=== PATIENT | female | born 1950 | race Two or more races ===

== ENCOUNTER 2017-09-05 10:20 | Emergency (ER) | payer OTHER ==
[~2017-09-05] VITALS: Ht 154.9 cm; Wt 79.4 kg
[2017-09-05] MEDS ORDERED: ACETAMINOPHEN 325 MG TAB PO ONE ×2 (10:29→10:30)
[2017-09-05 10:32] VITALS: BP 149/90
== END 2017-09-05 11:56 | disposition home or self-care (01) ==
LOC: ER 10:20
DX: J06.9 Acute upper respiratory infection, unspecified (principal)
CPT/HCPCS: 87804

== ENCOUNTER 2019-01-21 18:40 | Emergency (ER) | payer OTHER, MEDICAID ==
[~2019-01-21] VITALS: Ht 154.9 cm; Wt 81.6 kg
[2019-01-21] MEDS ORDERED: AMMONIA 0.33 ML INHALANT IN ONE (18:45)
[2019-01-21] MEDS ORDERED: SODIUM CHLORIDE 0.9% 1,000 ML IV ONE (19:45)
[2019-01-21] MEDS ORDERED: LORazepam 2MG/ML-1ML VIAL IV ONE (19:45)
[2019-01-21 19:49] LABS: Basophils # (auto) 0.1 uL; Basophils % (auto) 2.4 % (0.0-2.0); Eosinophils # (auto) 0.1 uL; Eosinophils % (auto) 1.7 % (0.0-7.0); Hematocrit 40.5 % (36.0-46.0); Hemoglobin 13.1 g/dL (12.2-16.2); Lymphocytes # (auto) 1.3 uL; Lymphocytes % (auto) 21.8 % (10.0-50.0); Mean Corpuscular Hemoglobin 26.9 pg (28.0-32.0); Mean Corpuscular Hgb Conc. 32.4 g/dL (32.0-36.0); Mean Corpuscular Volume 83.1 fL (80.0-100.0); Monocytes # (auto) 0.3 uL; Monocytes % (auto) 5.3 % (0.0-12.0); Neutrophils # (auto) 4.1 uL; Neutrophils % (auto) 68.8 % (37.0-80.0); Nucleated Red Blood Cells % 0.2 %; Platelet Count (auto) 243 10^3/uL (140-450); Red Blood Cells 4.87 10^6/uL (4.0-5.20); Red Cell Distribution Width 14.2 % (11.8-14.3); White Blood Cell 5.9 10^3/uL (4.4-10.8)
[2019-01-21 20:10] LABS: Salicylate < 1.7 mg/dL (2.8-20.0)
[2019-01-21 20:14] LABS: Acetaminophen < 2.0 ug/mL (10-30)
[2019-01-21 20:20] LABS: Alanine Aminotransferase 28 U/L (13-56); Albumin 3.7 g/dL (3.4-5.0); Anion Gap 12 (5-15); Blood Urea Nitrogen 19 mg/dL (7-18); Calcium 9.5 mg/dL (8.5-10.1); Carbon Dioxide 24 mmol/L (21-32); Chloride 108 mmol/L (98-107); Glucose 118 mg/dL (74-106); Magnesium 2.4 mg/dL (1.6-2.6); Potassium 3.4 mmol/L (3.5-5.1); Sodium 144 mmol/L (136-145)
[2019-01-21 20:23] LABS: Alkaline Phosphatase 68 U/L (45-117); Aspartate Aminotransferase 19 U/L (15-37); BUN/Creatinine Ratio 19.4; Bilirubin, Total 0.1 mg/dL (0.2-1.0); GFR African American 73 mL/min; GFR Non-African American 60 mL/min; Total Protein 7.7 g/dL (6.4-8.2)
[2019-01-21 22:23] VITALS: BP 100/55
== END 2019-01-21 23:13 | disposition home or self-care (01) ==
LOC: ER 18:40
DX: F41.9 Anxiety disorder, unspecified (principal); F10.229 Alcohol dependence with intoxication, unspecified
CPT/HCPCS: 36415; 80053; 80320; 80329; 83735; 85025; 96374; 99283; J2060; J7030

== ENCOUNTER 2024-12-26 12:39 | Emergency (ER) | payer OTHER ==
[~2024-12-26] VITALS: Ht 152.4 cm; Wt 83.9 kg
--- NOTE | 2024-12-26 13:18 | ED.PDOC ---
GI ASSESSMENT HPI Comments 74 y.o female with PMHx of DM, HTN and cardiomegaly, presents to the ED for a chief complaint of right upper quadrant pain associated with nausea, vomiting and diarrhea that started yesterday. Patient reports pain is constant, radiating to her back and worsens on palpation. Patient mentions she also presents with new onset chest pressure with right arm numbness today . Patient reports no vomiting episodes today. Patient denies any dysuria, SOB, fever, or chills. Patient is not on any DM medication, states she is managing with diet and natural remedies approved by PCP. Patient is compliant with HTN medication. She denies any alcohol, tobacco or substance use. Chief Complaint: Abdominal Pain Time Seen by MD: 12:52 Primary Care Provider: ARTURO Fisher Notes: Nurses Notes, Medications, Allergies Allergies: Coded Allergies: NO KNOWN ALLERGIES (Unverified , 09/05/17) Information Source: Patient Mode of Arrival: Ambulatory Timing: Days (1) Duration: Since onset Quality: Sharp Vomitus: Hard Stool: Loose Severity: Moderate Recent: None Recent Hx of: None Pain Location: RUQ Modifying Factors: Nothing Associated sign and symptoms: Nausea, Vomiting, Diarrhea, Abdominal Pain Past Medical History PAST MEDICAL HISTORY: Anxiety, DM, HTN Past Medical History (Other): enlarged heart Surgical History: Appendectomy, Surgical History (Other): carpal tunnel 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 Family History Family History: Unknown Social History Smoker: Non-Smoker Alcohol: Denies ETOH Use Drugs: Denies Drug Use Lives In: Home Constitutional: denies: chills, diaphoresis, fatigue, fever, malaise, sweats, weakness, others EENTM: denies: blurred vision, double vision, ear bleeding, ear discharge, ear drainage, ear pain, ear ringing, eye pain, eye redness, hearing loss, mouth pain, mouth swelling, nasal discharge, nose bleeding, nose congestion, nose pain, photophobia, tearing, throat pain, throat swelling, voice changes, others Respiratory: denies: cough, hemoptysis, orthopnea, SOB at rest, shortness of breath, SOB with excertion, stridor, wheezing, others Cardiovascular: reports: chest pain; denies: dizzy spells, diaphoresis, Dyspnea on exertion, edema, irregular heart beat, left arm pain, lightheadedness, palpitations, PND, syncope, others Gastrointestinal: reports: abdominal pain, diarrhea, nausea, vomiting; denies: abdomen distended, blood streaked bowels, constipated, dysphagia, difficulty swallowing, hematemesis, melena, poor appetite, poor fluid intake, rectal bleeding, rectal pain, others Genitourinary: denies: abnormal vagina bleeding, burning, dyspareunia, dysuria, flank pain, frequency, hematuria, incontinence, pain, , vagina discharge, urgency, others Neurological: reports: numbness (right arm ); denies: dizziness, fainting, headache, left sided numbness, left sided weakness, paresthesia, pre-existing deficit, right sided numbness, right sided weakness, seizure, speech problems, tingling, tremors, weakness, others Musculoskeletal: reports: back pain, others (right arm pain ); denies: gout, joint pain, joint swelling, muscle pain, muscle stiffness, neck pain Integumetry: denies: bruises, change in color, change in hair/nails, dryness, laceration, lesions, lumps, rash, wounds, others Allergic/Immunocompromised: denies: Difficulty Healing, Frequent Infections, Hives, Itching, others Hematologic/Lymphatic: denies: anemia, blood clots, easy bleeding, easy bruising, swollen glands, others Endocrine: denies: excessive hunger, excessive sweating, excessive thirst, excessive urination, flushing, intolerance to cold, intolerance to heat, unexplained weight gain, unexplained weight loss, others Psychiatric: denies: anxiety, bipolar disorder, depression, hopeless, panic disorder, schizophrenia, sleepless, suicidal, others All Other Systems: Reviewed and Negative Physical Exam General Appearance: No Apparent Distress, Obese HEENT: Other (Pupils and face symmetric. Moist mucous membranes.) Neck: Full Range of Motion, Normal Inspection Respiratory: Lungs Clear, No Accessory Muscle Use, No Respiratory Distress, Normal Breath Sounds Cardiovascular: No Edema, No JVD, Regular Rate/Rhythm Breast Exam: Deferred Gastrointestinal: RUQ, Soft, Tenderness Genitalia: Deferred Pelvic: Deferred Rectal: Deferred Extremities: Normal inspection, Normal range of motion, Non-tender, No pedal edema Neurologic: Alert (Oriented x4), Normal Affect, Normal Mood, Other (Ambulatory) Cerebellar Function: NOT DONE Reflexes: NOT DONE Skin: Dry, Normal Color, Warm Lymphatic: NOT DONE Was a procedure done? Was a procedure done?: No GI differential Dx Differential Diagnosis: Appendicitis, Angina/LA, Cholangitis, Cholecystitis, Diverticular disease, Gastritis/PUD, Gastroenteritis, Inflammatory BD, Ischemic Bowel, Pancreatitis, Porphyria, UTI, Dehydration, Diabetes/ DKA, Electrolyte Imbalance, Food Poisoning, Bacterial, Viral, Hypovolemia, Renal Failure, Kidney Stone X-Ray, Labs, Meds, VS Vital Signs Date Time Temp Pulse Resp B/P (MAP) Pulse Ox O2 Delivery O2 Flow Rate FiO2 12/26/24 18:08 76 11 95/48 (64) 97 12/26/24 15:39 75 13 96 Room Air* 0 21 12/26/24 15:25 77 13 107/55 12/26/24 15:00 97.8 77 16 107/55 (72) 93 97.8 12/26/24 13:54 78 13 119/58 12/26/24 13:30 81 16 104/46 (65) 95 12/26/24 13:02 86 12/26/24 12:53 98.2 86 16 108/72 (84) 100 98.2 Lab Test 12/26/24 15:28 12/26/24 13:17 Range/Units Lactic Acid Level 1.5 2.3 *H 0.4-2.0 mmol/L White Blood Count 8.3 4.4-10.8 10^3/uL Red Blood Count 5.14 4.0-5.20 10^6/uL Hemoglobin 13.5 12.2-16.2 g/dL Hematocrit 41.3 36.0-46.0 % Mean Corpuscular Volume 80.3 80.0-100.0 fL Mean Corpuscular Hemoglobin 26.3 L 28.0-32.0 pg Mean Corpuscular Hemoglobin Concent 32.7 32.0-36.0 g/dL Red Cell Distribution Width 15.0 H 11.8-14.3 % Platelet Count 239 140-450 10^3/uL Mean Platelet Volume 9.5 6.9-10.8 fL Neutrophils (%) (Auto) 84.5 H 37.0-80.0 % Lymphocytes (%) (Auto) 6.8 L 10.0-50.0 % Monocytes (%) (Auto) 8.3 0.0-12.0 % Eosinophils (%) (Auto) 0.2 0.0-7.0 % Basophils (%) (Auto) 0.2 0.0-2.0 % Neutrophils # (Auto) 7.0 1.6-8.6 10 ^3/uL Lymphocytes # (Auto) 0.6 0.4-5.4 10 ^3/uL Monocytes # (Auto) 0.7 0-1.3 10 ^3/uL Eosinophils # (Auto) 0 0-0.8 10 ^3/uL Basophils # (Auto) 0 0-0.2 10 ^3/uL Nucleated Red Blood Cells 0.2 % Sodium Level 139 136-145 mmol/L Potassium Level 3.4 L 3.5-5.1 mmol/L Chloride Level 104 98-107 mmol/L Carbon Dioxide Level 20 20-31 mmol/L Anion Gap 15 5-15 Blood Urea Nitrogen 32 H 9-23 mg/dL Creatinine 2.24 H 0.550-1.02 mg/dL Glomerular Filtration Rate Calc 23 >90 mL/min BUN/Creatinine Ratio 14.3 10.0-20.0 Serum Glucose 144 H 74-106 mg/dL Calcium Level 10.9 H 8.7-10.4 mg/dL Total Bilirubin 0.4 0.2-1.0 mg/dL Aspartate Amino Transferase (AST) 20 13-40 U/L Alanine Aminotransferase (ALT) 24 7-40 U/L Alkaline Phosphatase 75 46-116 U/L Troponin I High Sensitivity 5 </=34 ng/L Total Protein 8.9 H 5.7-8.2 g/dL Albumin 5.2 H 3.2-4.8 g/dL Lipase 47 12-53 U/L Current Medications Medications (Trade) Dose Ordered Sig/Gonzalo Route Start Time Stop Time Status Last Admin Sodium Chloride 1,350 ml @ 1,350 mls/hr ONCE ONCE IV 12/26/24 13:15 12/26/24 14:14 DC 12/26/24 13:29 Ondansetron HCl (Zofran) 4 mg ONCE ONCE IV 12/26/24 13:15 12/26/24 13:16 DC 12/26/24 13:55 Morphine Sulfate 4 mg ONCE ONCE IV 12/26/24 13:15 12/26/24 13:16 DC 12/26/24 13:54 Ceftriaxone Sodium 50 ml @ 100 mls/hr ONCE ONCE IV 12/26/24 17:00 12/26/24 17:29 DC 12/26/24 17:26 Metronidazole 100 ml @ 100 mls/hr ONCE ONCE IV 12/26/24 17:00 12/26/24 17:59 DC 12/26/24 17:59 Potassium Bicarbonate (Klor-Con/Ef) 50 meq ONCE ONCE PO 12/26/24 17:00 12/26/24 17:01 DC 12/26/24 17:[address] AB PEL WO CON-NO ORAL OR IV INDICATION: ruq pain EXAM DATE: 12/26/2024 01:38 PM COMPARISON: None RADIATION DOSE: CTDIvol: 25 mGy, DLP: 1288 mGy*cm PROCEDURE: Helical CT images were obtained of the abdomen and pelvis without IV contrast Sagittal and coronal reconstructions are provided. ORAL CONTRAST: None. ADDITIONAL IMAGES / REFORMATS: None All CT scans at this medical facility are performed using dose modulation techniques as appropriate to a performed exam including the following: Automated exposure control was utilized; adjustment of the MA and/or KV according to patient size; and use of iterative reconstruction technique. FINDINGS: LUNG BASE: 3 mm right basilar pulmonary nodule. LIVER: Hepatomegaly. GALLBLADDER AND BILIARY TREE: No calcified gallstones. Normal caliber wall. No intra- or extrahepatic biliary ductal dilation. PANCREAS: Normal. SPLEEN: Normal. BOWEL: Modersate to severe colonic diverticulosis. Appendix is not seen. ADRENALS: Normal. KIDNEYS AND URETER: 1.9 cm right kidney cyst. BLADDER: Normal. REPRODUCTIVE ORGANS: Normal. LYMPH NODES:No lymphadenopathy. PERITONEUM: No ascites or free air. No other fluid collection. VESSELS: Scattered atherosclerotic calcifications are noted. RETROPERITONEUM: Normal. ABDOMINAL WALL: Normal. BONES: Scattered osseous degenerative changes are noted. IMPRESSION: No acute intraabdominal abnormality. Modersate to severe colonic diverticulosis. Appendix is not seen. X-Ray, Labs, Meds, VS Comment 74-year-old female with a history of hypertension, diabetes and an enlarged heart brought in by family complaining of abdominal pain, nausea, vomiting and diarrhea Vitals remarkable for BP 104/46 Exam remarkable for right upper quadrant and epigastric tenderness to palpation Rhythm strip independently interpreted by me: Sinus rhythm, rate 86, no ectopy. CT abdomen and pelvis unremarkable CBC unremarkable, comprehensive metabolic panel remarkable for BUN 32, creatinine 2.24, potassium 3.4, troponin negative, lipase normal, lactate 2.3 , UA pending Patient treated with the following in the ED: 30 cc/kilogram 0.9 normal saline IV bolus, Zofran 4 mg IV, morphine 4 mg IV, Protonix 40 mg IV, Rocephin 1 g IV, Flagyl 500 mg IV, effervescent potassium 50 mEq p.o. On re-evaluation, patient states symptoms have improved. Vitals were stable. Patient does not appear septic at this time. Initial elevated lactate was likely due to dehydration. Plan is to admit the patient for IV hydration, pain and emesis control and IV antibiotics. Discussed with Dr. Weiss at [facility], who will accept the patient as a transfer. Time of 1ST Reevaluation: 13:11 Reevaluation 1ST: Unchanged Patient Education/Counseling: Diagnosis, Treatment, Prognosis Family Education/Counseling: Diagnosis, Treatment, Prognosis Sepsis Sepsis Reasesment Focused Exam Orders: Laboratory Tests 12/26/24 13:17: Lactic Acid Level 2.3 12/26/24 15:28: Lactic Acid Level 1.5 Recent Procedure: No On Antibiotic Therapy: No Respiratory Rate >20: No Heart Rate >90: No Temp<36 C (96.8 F) or >38.3 C: No SBP <90 or MAP <65 mmHG: No New Acute Mental Status Change: No Is the patient on CPAP, BIPAP,: No Departure 1 Departure Time of Disposition: 16:45 Impression: Primary Impression: Abdominal pain Qualified Codes: R10.11 - Right upper quadrant pain Additional Impressions: Nausea vomiting and diarrhea Acute kidney injury Disposition: 02 SHORT TERM HOSPITAL Admit to: Med Surg Condition: Guarded Critical Care Note Critical Care Time?: No Stability Stability form required: No Heart Score Heart Score: Heart Score Response (Comments) Value History N/A 0 EKG N/A 0 Age N/A 0 Risk Factors N/A 0 Troponin N/A 0 Total 0 I personally scribed for LESLEE GORMAN [facility] on 12/26/24 at 13:18. Electronically submitted by Jeannette Cunha ([facility]). I personally scribed for LESLEE GORMAN MD ([facility] on 12/26/24 at 15: 39. Electronically submitted by Jeannette Cunha ([facility]). LESLEE GORMAN MD Dec 26, 2024 13:18
[2024-12-26] MEDS: SODIUM CHLORIDE 0.9% 1,350 ML IV ONE (13:29)
[2024-12-26 13:41] LABS: Basophils # (auto) 0 10 ^3/uL (0-0.2); Eosinophils # (auto) 0 10 ^3/uL (0-0.8); Eosinophils % (auto) 0.2 % (0.0-7.0); Hemoglobin 13.5 g/dL (12.2-16.2); Lymphocytes # (auto) 0.6 10 ^3/uL (0.4-5.4); Lymphocytes % (auto) 6.8 % (10.0-50.0); Mean Corpuscular Hgb Conc. 32.7 g/dL (32.0-36.0); Monocytes # (auto) 0.7 10 ^3/uL (0-1.3); White Blood Cell 8.3 10^3/uL (4.4-10.8)
[2024-12-26 13:43] LABS: Basophils % (auto) 0.2 % (0.0-2.0); Hematocrit 41.3 % (36.0-46.0); Mean Corpuscular Hemoglobin 26.3 pg (28.0-32.0); Mean Corpuscular Volume 80.3 fL (80.0-100.0); Monocytes % (auto) 8.3 % (0.0-12.0); Neutrophils % (auto) 84.5 % (37.0-80.0); Nucleated Red Blood Cells % 0.2 %; Platelet Count (auto) 239 10^3/uL (140-450); Red Blood Cells 5.14 10^6/uL (4.0-5.20)
[2024-12-26] MEDS: MORPHINE SULFATE 4 MG/ML SYR/VIAL IV ONE (13:54)
[2024-12-26 13:55] LABS: Alanine Aminotransferase 24 U/L (7-40); Alkaline Phosphatase 75 U/L (46-116); Anion Gap 15 (5-15); Aspartate Aminotransferase 20 U/L (13-40); BUN/Creatinine Ratio 14.3 (10.0-20.0); Chloride 104 mmol/L (98-107); Sodium 139 mmol/L (136-145)
[2024-12-26] MEDS: ONDANSETRON HCL 4 MG/2 ML VIAL IV ONE (13:55)
[2024-12-26 13:56] LABS: Albumin 5.2 g/dL (3.2-4.8); Bilirubin, Total 0.4 mg/dL (0.2-1.0); Blood Urea Nitrogen 32 mg/dL (9-23); Calcium 10.9 mg/dL (8.7-10.4); Carbon Dioxide 20 mmol/L (20-31); Glucose 144 mg/dL (74-106); Potassium 3.4 mmol/L (3.5-5.1); Total Protein 8.9 g/dL (5.7-8.2)
[2024-12-26 13:58] LABS: Lactic Acid w/Reflex 2.3 mmol/L (0.4-2.0)
--- NOTE | 2024-12-26 14:26 | DVH ---
CT CT AB PEL WO CON-NO ORAL OR IV INDICATION: ruq pain EXAM DATE: 12/26/2024 01:38 PM COMPARISON: None RADIATION DOSE: CTDIvol: 25 mGy, DLP: 1288 mGy*cm PROCEDURE: Helical CT images were obtained of the abdomen and pelvis without IV contrast Sagittal and coronal reconstructions are provided. ORAL CONTRAST: None. ADDITIONAL IMAGES / REFORMATS: None All C T scans at this medical facility are performed using dose modulation techniques as appropriate to a p erformed exam including the following: Automated exposure control was utilized; adjustment of the MA and/or KV according to patient size; and use of iterative reconstruction technique. FINDINGS: LUNG BASE: 3 mm right basilar pulmonary nodule. LIVER: Hepatomegaly. GALLBLADDER AND BILIARY TREE: No calcified gallstones. Normal caliber wall. No intra- or extrahepatic biliary ductal dilation. PANCREAS: Normal. SPLEEN: Normal. BOWEL: Modersate to severe colonic diverticulosis. Appendix is not seen. ADRENALS: Normal. KIDNEYS AND URETER: 1.9 cm right kidney cyst. BLADDER: Normal. REPRODUCTIVE ORGANS: Normal. LYMPH NODES:No lymphadenopathy. PERITONEUM: No ascites or free air. No other fluid collection. VESSELS: Scattered atherosclerotic calcifications are noted. RETROPERITONEUM: Normal. ABDOMINAL WALL: Normal. BONES: Scattered osseous degenerative changes are noted. IMPRESSION: No acute intraabdominal abnormality. Modersate to severe colonic diverticulosis. Appendix is not seen.
[2024-12-26 14:39] LABS: Lipase 47 U/L (12-53)
[2024-12-26 15:39] VITALS: PULSE 75; RESP 13; O2SAT 96
[2024-12-26] MEDS: POTASSIUM EFFERVESENT TAB 25 MEQ PO ONE (17:25)
[2024-12-26] MEDS: cefTRIAXone 1GM/50ML D5W 50 ML IV ONE (17:26)
[2024-12-26] MEDS: metroNIDAZOLE 500MG/100ML 100 ML IV ONE (17:59)
[2024-12-26 20:22] VITALS: PULSE 74; RESP 17; O2SAT 92
[2024-12-26 20:40] VITALS: BP 106/53; PULSE 75; RESP 19; TEMP 99; O2SAT 96
--- NOTE | 2024-12-27 04:57 | ECG ---
[facility] Test Date: 2024-12-26 Test Time: 13:02:30 Pat Name: MILEY NOVA Department: ER Room: Gender: F Transportation Maintenance Supervisor: : [id number] Requested By: LESLEE ANAYA Order Number: [id number] Reading MD: Kyle Ruiz Measurements Intervals [place] Rate: 86 P: 59 IN: 138 QRS: 72 QRSD: 93 T: 57 QT: 457 QTc: 547 Interpretive Statements Sinus rhythm Prolonged QT interval Electronically Signed On 12-29-2024 20:54:33 PDT by Kyle Ruiz Please click the below link to view image of tracing.
== END 2024-12-26 21:07 | disposition short-term general hospital (02) ==
LOC: ER 12:39
DX: N17.9 Acute kidney failure, unspecified (principal); R10.11 Right upper quadrant pain; R11.2 Nausea with vomiting, unspecified; I10 Essential (primary) hypertension; E11.9 Type 2 diabetes mellitus without complications; F41.9 Anxiety disorder, unspecified; Z90.49 Acquired absence of other specified parts of digestive tract; Z98.890 Other specified postprocedural states
CPT/HCPCS: 36415; 74176; 80053; 83605; 83690; 84484; 85025; 87040; 93005; 96361; 96365; 96367; 96375; 99285; J0696; J2270; J2405; J3490; J7030